=== PATIENT | female | born 1960 | race Caucasian/White ===

== ENCOUNTER 2018-02-13 09:11 | Emergency (ER) | payer BC ==
[2018-02-13 10:06] VITALS: BP 182/110
--- NOTE | 2018-02-13 10:20 | UC ---
Minor Trauma HPI - HPI Summary HPI Summary: Patient presents to the urgent care for evaluation of right-sided head trauma that happened yesterday. Patient states she is wearing into her garage. Patient states he was some moisture in the garage floor she tripped and fell landing on the right side of her face and her left knee. Patient states the mealy she had bruising around her eye as well as swelling. Patient states she applied ice pack all day long. Patient also with some bruising to her left knee. Patient did not lose consciousness. No blood out of her HEENT. No neck or back pain. No chest pain or shortness of breath. No abdominal pain. No nausea vomiting. No paresthesias or muscle weakness. Patient states her father had history of a brain hemorrhage following a fall at her retirement and so she and her mother very concerned she has bleeding. Patient came to reassurance and evaluation of this today patient is not on any anticoagulants. Patient has not taken anything for pain medication had a bleed. Patient does not have any vision changes. Patient does report a dull right-sided frontal headache. Patient asked and did denied any intentional trauma. States nobody injured her that she slipped and fell as described above. Of note, patient's blood pressure was markedly elevated at today's exam. Patient states she has a history of hypertension has taken herself off her medication. Patient states she was concerned it was getting high again so she has appointment this Wednesday to resume medications with her primary. Patient without any chest pain or lightheadedness. Pt's medications reviewed this visit - History of Current Complaint Chief Complaint: UCHeadInjury Stated Complaint: S/P FALL HEAD INJURY (YESTERDAY - NO LOC) Time Seen by Provider: 02/13/18 10:15 Hx Obtained From: Patient ?: No Onset/Duration: Sudden Onset Onset Of Pain: Immediate Severity Initially: Moderate Severity Currently: Moderate Pain Intensity: 6 Pain Scale Used: 0-10 Numeric Mechanism Of Injury: Blunt Trauma Aggravating Factor(s): Nothing Alleviating Factor(s): Ice - Allergies/Home Medications Allergies/Adverse Reactions: Allergies Allergy/AdvReac Type Severity Reaction Status Date / Time No Known Allergies Allergy Verified 02/13/18 09:54 PMH/Surg Hx/FS Hx/Imm Hx Previously Healthy: Yes Cardiovascular History: Hypertension - Surgical History Surgical History: Yes Surgery Procedure, Year, and Place: hysterectromy. rhinoseptroplasty. Rt knee surgery - Family History Known Family History: Positive: Hypertension - Social History Alcohol Use: Occasionally Substance Use Type: None Smoking Status (MU): Never Smoked Tobacco - Immunization History Most Recent Influenza Vaccination: 02/2013 Review of Systems Constitutional: Negative Skin: Bruising Eyes: Negative ENT: Negative Respiratory: Negative Motor: Negative Neurovascular: Negative All Other Systems Reviewed And Are Negative: Yes Physical Exam - Summary Physical Exam Summary: Vital Signs Reviewed: Yes A+Ox3, no distress Eyes: Conjunctiva Clear, NINA. EOM intact and full + Ecchymosis upper orbital area and upper lid. no crepitus. ENT: Hearing grossly normal TM x 2 clear, mmoist, uvula midline, no exudate, no erythema No hemotymp b/l no septal hematoma b/l Neck: Positive: Supple Respiratory: Positive: No respiratory distress, No accessory muscle use + CTA throughout no w/r Cardiovascular: RRR nl s1, s2 no m/r CBT <2 sec abd soft + BS nt/nd no guarding, no distension Musculoskeletal Exam: TAVAREZ x 4 without difficulty Strength Intact, ROM Intact No pain c/t/l/s Full AROM Neurological: Positive: Alert, + sensation throughout + CN 2- 12 intact and full, + heel/peters Psychological: Positive: Normal Response To Family Skin: Positive: no rash, no abraison, pt with ecchymosis right upper orbit and upper lid. Ecchymosis left knee Triage Information Reviewed: Yes Vital Signs: Initial Vital Signs Temp 98.4 F 02/13/18 09:57 Pulse 81 02/13/18 09:57 Resp 14 02/13/18 09:57 BP 182/110 02/13/18 09:57 Pulse Ox 97 02/13/18 09:57 Diagnostics - Radiology No standard instances Radiology Interpretation Completed By: Radiologist - Patient Name: VICENTE CHINCHILLA Medical Record#: [id number] Ordering Physician: Tanisha Monsivais MD Acct.#: [id number] : 1960 Age: 57 Sex: F Location: [facility] Exam Date: 02/13/18 1027 ADM Status: REG ER Order Information: CT BRAIN WO Accession Number: [id number] CPT: 58906 Indication: Fall February 12, 2018 injury to the eye. Clinical concern for potential intracranial hemorrhage. Comparison: No relevant prior exams available on the [facility] for comparison. Technique: Noncontrast CT vertex of skull through foramen magnum. Report: Mild prominence of the cerebral sulci and cerebellar fissures reflecting involutional change. Unremarkable ventricles and basal cisterns. Negative for pang matter white matter obscuration, intra or extra-axial hemorrhage, or mass effect. Negative for calvarial or skull base fracture. Clear visualized paranasal sinuses and mastoid air spaces. Negative for scalp hematoma. IMPRESSION: #. No CT evidence for traumatic brain injury. #. Mild involutional change. <Electronically signed by Lenin Newberry MD in OV> 02/13/181106 Dictated By: Lenin Newberry MD Dictated Date/Time: 02/13/181106 Transcribed Date/Time: 02/13/18 110 Copy to: CC:Paige MENDEZ; Tanisha Monsivais MD Imaging - [facility] - [place] [facility] - [facility] [address] [place] [address] ph ) ph ([phone]) ph ([phone]) This report is only to be considered final once signed by the Provider(s) as displayed in the "<Electronically Signed by >" field (s). Absence of a signature indicates the report is in a draft status and still needs to be finalized. In the event this document was created by someone other than the signing Provider, the individual initiating the document will be listed in the "Entered by:" or "Dictated by:" medina. 1 of 1 Re-Evaluation - Re-Evaluation First Eval Re-Evaluation Time: 11:25 Comment: Reviewed imaging studies with patient. No acute fracture. Recommended ice. Motrin/time. Recommend patient follow up PCP on Wednesday for blood pressure. Patient has appointment already. Work note. Minor Trauma Course/Dx - Course Course Of Treatment: Patient presents to urgent care for evaluation following a fall last night. Patient states she was stopped in a garage landing on her left knee and her right face. Patient with ecchymosis to her left knee. Patient with full range of motion without instability. Patient had a without difficulty. Patient also with ecchymosis to her right eye. Patient states it is more swollen yesterday improved with ice. No analgesia taken. Patient concern for bleeding given a family history of brain please after fall. Patient is on anticoagulation. Patient declined Tylenol here. We'll give ice. We'll check a CT of the brain and orbit. Discussed with patient her blood pressure was markedly elevated. Patient has appointment on Wednesday with her PCP. Patient comfortable in agreement with plan. - Differential Dx/Diagnosis Provider Diagnoses: facial contusion. knee contusion, left Discharge - Sign-Out/Discharge Documenting (check all that apply): Patient Departure All imaging exams completed and their final reports reviewed: Yes - Discharge Plan Condition: Stable Disposition: HOME Patient Education Materials: Contusion in Adults (ED), Facial Contusion (ED), Hypertension (ED) Forms: *Work Release Referrals: Paige Marquis [Primary Care Provider] - Additional Instructions: - Okay to alternate ibuprofen (Advil, Motrin) and Tylenol every 3 hours for pain or fever. Take with food. Do NOT take for more than 4-5 days. - apply ice (wrapped in a towel) 20 minutes at a time 2-3 times a day - Follow-up with your doctor this week as scheduled - contact your doctor or return with questions or concerns - Billing Disposition and Condition Condition: STABLE Disposition: Home
--- NOTE | 2018-02-13 11:10 | RAD ---
Indication: Fall February 12, 2018 injury to the eye. Clinical concern for potential intracranial hemorrhage. Comparison: No relevant prior exams available on the [facility] PACS for comparison. Technique: Noncontrast CT vertex of skull through foramen magnum. Report: Mild prominence of the cerebral sulci and cerebellar fissures reflecting involutional change. Unremarkable ventricles and basal cisterns. Negative for pang matter white matter obscuration, intra or extra-axial hemorrhage, or mass effect. Negative for calvarial or skull base fracture. Clear visualized paranasal sinuses and mastoid air spaces. Negative for scalp hematoma. IMPRESSION: #. No CT evidence for traumatic brain injury. #. Mild involutional change.
--- NOTE | 2018-02-13 11:21 | RAD ---
Indication: Fall with traumatic injury to the RIGHT eye. Facial soft tissue swelling. Comparison: CT brain of the same date. Technique: CT orbits without contrast. Multiplanar reformation. Report: Very mild soft tissue swelling superficial to the RIGHT eye. Negative for post septal RIGHT orbital edema or hematoma. The ocular globes are symmetric. Minimal mucosal thickening at the floors of the maxillary sinuses. Negative for paranasal sinus fluid levels. The orbital and maxillary sinus margins, zygomatic arches, lamina papyracea, base of the maxilla, pterygoid plates, and nasal bones are intact. Unremarkable temporomandibular joints. IMPRESSION: #. Very mild soft tissue swelling superficial to the RIGHT eye. Negative for post septal RIGHT orbital edema or hematoma. #. Negative for facial fracture within the [id number].
== END 2018-02-13 11:38 | disposition home or self-care (01) ==
LOC: UCCORT 09:11
DX: S00.83XA Contusion of other part of head, initial encounter (principal); S80.02XA Contusion of left knee, initial encounter; W01.0XXA Fall on same level from slipping, tripping and stumbling without subsequent striking against object, initial encounter; Y93.01 Activity, walking, marching and hiking; Y92.008 Other place in unspecified non-institutional (private) residence as the place of occurrence of the external cause; I10 Essential (primary) hypertension
CPT/HCPCS: 70450; 70480; 99211; G0463

== ENCOUNTER 2018-10-25 09:12 | Observation (INO) | payer BC ==
[2018-10-25] MEDS ORDERED: Aspirin 81 mg CHEW TAB* 81 MG TAB.CHEW PO ONE (09:31)
[2018-10-25 09:40] LABS: ABS Basophils 0.1 10^3/ul (0-0.2); ABS Eosinophils 0.2 10^3/ul (0-0.6); ABS Lymphocytes 2.4 10^3/ul (1.0-4.8); ABS Monocytes 0.6 10^3/ul (0-0.8); ABS Neutrophils 3.5 10^3/ul (1.5-7.7); Eosinophil % 2.9 %; Hematocrit 43 % (35-47); Hemoglobin 14.7 g/dL (12.0-16.0); Lymphocyte % 35.3 %; Mean Corpuscular HGB Conc 34 g/dL (31-36); Mean Corpuscular Hemoglobin 33 pg (27-31); Mean Corpuscular Volume 97 fL (80-97); Mean Platelet Volume 7.3 fL (7.4-10.4); Platelet Count 254 10^3/uL (150-450); Red Blood Count 4.44 10^6 /uL (3.70-4.87); Red Cell Distribution Width 13 % (10-15); White Blood Count 6.8 10^3/uL (3.5-10.8)
--- NOTE | 2018-10-25 09:41 | ED ---
HPI Chest Pain - HPI Summary HPI Summary: The patient is a 57 year old F brought in by EMS to [facility] accompanied by her with a chief complaint of mid sternal CP that radiates to her back and HTN. Pt called her while at work and stated that she had high blood pressure with chest pain. She states that she was unable to get comfortable on . She had tingling while falling asleep but felt fine when she was standing and had no other issues on 10/24/17. Last night she had large amounts of diaphoresis during the night and had pains this morning when she woke up at 0600. She states that the pain hasnt increased or decreased since onset and that it is a 6/10. She also reports feeling as if shes bloated and has had gas pains with diarrhea and abdominal pains. She also reports a headache. Pt denies any fever, chills, erythema of eyes, sore throat, SOB, N/V, dysuria, hematuria, myalgia, edema, rash, or dizziness. 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 She reports that she has not been taking her BP medications. She denies any heart complications and her reports that she doesnt smoke. She is on medications for HTN. She has had no issues in the last couple of weeks. Her mother has a Hx of blockages in 3 arteries that extend into her lower extremity. Her mother also has a Hx of aneurisms, cardiac complications, and DM. Her father of a heart attack. 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 - Onset/Duration: Started Hours Ago - 06, Still Present Time of Onset: 06:00 Timing: Constant Initial Severity: Moderate Current Severity: Moderate Pain Intensity: 6 Pain Scale Used: 0-10 Numeric Chest Pain Location: Mid Sternal Chest Pain Radiates: Yes Chest Pain Radiates To:: Back Character: Tightness Aggravating Factor(s): Nothing Alleviating Factor(s): Nothing Associated Signs and Symptoms: Positive: Negative - Pt denies any fever, chills , erythema of eyes, sore throat, SOB, N/V, dysuria, hematuria, myalgia, edema, rash, or dizziness, Chest Pain, Headaches, Tingling - when falling asleep, Diaphoresis, Back Pain, Abdominal Pain, Other: - POSITIVE: diarrhea - Allergy/Home Medications Allergies/Adverse Reactions: Allergies Allergy/AdvReac Type Severity Reaction Status Date / Time No Known Allergies Allergy Verified 10/25/18 09:16 PMH/Surg Hx/FS Hx/Imm Hx Previously Healthy: No Endocrine/Hematology History: Denies: Hx Diabetes, Hx Thyroid Disease Cardiovascular History: Reports: Hx Hypertension - on medication, Other Cardiovascular Problems/Disorders - CHOLESTEROL Denies: Hx Congestive Heart Failure, Hx Deep Vein Thrombosis, Hx Myocardial Infarction, Hx Pacemaker/ICD Respiratory History: Denies: Hx Asthma, Hx Chronic Obstructive Pulmonary Disease (COPD), Hx Lung Cancer, Hx Pneumonia, Hx Pulmonary Embolism, Other Respiratory Problems/ Disorders GI History: Denies: Hx Gall Bladder Disease, Hx Gastrointestinal Bleed, Hx Ulcer, Hx Urosepsis History: Denies: Hx Kidney Stones, Hx Renal Disease Musculoskeletal History: Denies: Hx Scoliosis Sensory History: Denies: Hx Hearing Aid Neurological History: Reports: Hx Headaches Denies: Hx Dementia, Hx Migraine, Hx Seizures, Hx Transient Ischemic Attacks (TIA) Psychiatric History: Denies: Hx Anxiety, Hx Depression, Hx Panic Disorder, Hx Schizophrenia, Hx Bipolar Disorder - Cancer History Cancer Type, Location and Year: skin CA basal cell Hx Chemotherapy: No Hx Radiation Therapy: No - Surgical History Surgery Procedure, Year, and Place: hysterectromy. rhinoseptroplasty. Rt knee surgery Infectious Disease History: No Infectious Disease History: Denies: Hx Clostridium Difficile, Hx Hepatitis, Hx Human Immunodeficiency Virus (HIV), Hx of Known/Suspected MRSA, Hx Shingles, Hx Tuberculosis, Traveled Outside the [place] in Last 30 Days - Family History Known Family History: Positive: Hypertension - Social History Alcohol Use: Occasionally Substance Use Type: Reports: None Hx Tobacco Use: No Smoking Status (MU): Never Smoked Tobacco Review of Systems Positive: Skin Diaphoresis. Negative: Fever, Chills Negative: Erythema Negative: Sore Throat Positive: Chest Pain Negative: Shortness Of Breath, Cough Positive: Abdominal Pain, Diarrhea. Negative: Vomiting, Nausea Negative: dysuria, hematuria Negative: Myalgia, Edema Negative: Rash Neurological: Other - NEGATIVE: Dizziness POSITIVE: tingling when falling asleep Positive: Headache All Other Systems Reviewed And Are Negative: Yes Physical Exam - Summary Physical Exam Summary: Constitutional: Well-developed, Well-nourished, Alert. (-) Distressed Skin: Warm, Dry HENT: Normocephalic; Atraumatic Eyes: Conjunctiva normal Neck: Musculoskeletal ROM normal neck. (-) JVD, (-) Stridor, (-) Tracheal deviation Cardio: Rhythm regular, rate normal, Heart sounds normal; Intact distal pulses; The pedal pulses are 2+ and symmetric. Radial pulses are 2+ and symmetric. (-) Murmur Pulmonary/Chest wall: Effort normal. (-) Respiratory distress, (-) Wheezes, (-) Rales Abd: Soft, (-) tenderness, (-) Distension, (-) Guarding, (-) Rebound Musculoskeletal: (-) Edema Lymph: (-) Cervical adenopathy Neuro: Alert, Oriented x3 Psych: Mood and affect Normal Triage Information Reviewed: Yes Vital Signs On Initial Exam: Initial Vitals Temp Pulse Resp BP Pulse Ox 97.9 F 71 20 256/129 100 10/25/18 09:13 10/25/18 09:13 10/25/18 09:13 10/25/18 09:13 10/25/18 09:13 Vital Signs Reviewed: Yes Diagnostics - Vital Signs Vital Signs Temp Pulse Resp BP Pulse Ox 10/25/18 09:13 97.9 F 71 20 256/129 100 - Laboratory Result Diagrams: 10/25/18 09:33 10/25/18 09:33 Lab Statement: Any lab studies that have been ordered have been reviewed, and results considered in the medical decision making process. - Radiology CXR Radiology Interpretation Completed By: Radiologist Summary of Radiographic Findings: NO ACTIVE CARDIOPULMONARY DISEASE. ED Physician has reviewed this report. - CT Brain CT Interpretation Completed By: Radiologist Summary of CT Findings: NO ACUTE INTRACRANIAL PATHOLOGY. ED Physician has reviewed this report. Chest A/P PO CT Interpretation Completed By: Radiologist Summary of CT Findings: 1. NO INTIMAL FLAP TO SUGGEST AORTIC DISSECTION. 2. FATTY INFILTRATION OF THE LIVER. 3. SCATTERED DIVERTICULA OF THE DISTAL COLON. ED Physician has reviewed this report - EKG 0924 Cardiac Rate: NL - 76 BPM EKG Rhythm: Sinus Rhythm ST Segment: Normal Summary of EKG Findings: EKG was read at 0924 on 10/25/18 and shows a normal sinus rhythm of 76 BPM, no stemi, and a probable LVH. Interpreted by Dr. Roberto MD. 0926 Cardiac Rate: NL - 74 EKG Rhythm: Sinus Rhythm Summary of EKG Findings: EKG read at 0926 on 10/25/18 and shows a normal sinus rhythm with a rate of 74 BPM, LVH, and no STEMI. Re-Evaluation - Re-Evaluation First Eval Re-Evaluation Time: 10:20 Change: Improved Comment: Pt is down to a 1/10 for chest pressure. Still c/o a headache, a head CT will be done. Second Eval Re-Evaluation Time: 10:30 Change: Unchanged Comment: Pt requested to wait on her Brain CT until her creatinine levels were returned. Third Eval Re-Evaluation Time: 11:16 Comment: Pt was infromed of her Creatinine, her chest pressure is resolved but she still presents with a headache. She now reports of blurry vision in her R eye. Fourth Eval Re-Evaluation Time: 13:26 Change: Improved Comment: The pt just stated that she had a gradual onset of a headache for the past 2-3 days after falling down and hitting the back of her head. The hospitalist will be consulted pending an admission to [facility]. A subarachnoid hemorrhage is not suspected at this time. Chest Pain Course/Dx - Course Course Of Treatment: he patient is a 57 year old F brought in by EMS to [facility] accompanied by her with a chief complaint of mid sternal CP that radiates to her back and HTN. Pt called her while at work and stated that she had high blood pressure with chest pain. She states that she was unable to get comfortable on 10/23/18. She had tingling while falling asleep but felt fine when she was standing and had no other issues on 10/24/17. Last night she had large amounts of diaphoresis during the night and had pains this morning when she woke up at 0600. Upon her PE the pt had no abnormal findings. She had an EKG at 0926 on 10/25/18 and shows a normal sinus rhythm with a rate of 74 BPM, LVH, and no STEMI. The pt received a CXR which showed NO ACTIVE CARDIOPULMONARY DISEASE and a Brain CT which showed NO ACUTE INTRACRANIAL PATHOLOGY. Due to her lack of improvements with her abdominal region, she received a CT Chest A/P PO which found: 1. NO INTIMAL FLAP TO SUGGEST AORTIC DISSECTION. 2. FATTY INFILTRATION OF THE LIVER. 3. SCATTERED DIVERTICULA OF THE DISTAL COLON. She received the following medications during her ED course: ASA 324 mg PO, Nitro .4mg SL, nitro 1 inch topical. The pt stated at 1328 that she had a gradual onset of a headache for the past 2-3 days after falling down and hitting the back of her head. The hospitalist will be consulted pending an admission to [facility]. A subarachnoid hemorrhage is not suspected at this time. Dr. Pruitt is aware of pt's condition and accepts the pt as an admit to [facility] with the Dx of hypertensive emergency. - Diagnoses Provider Diagnoses: Hypertensive emergency - Provider Notifications Discussed Care Of Patient With: Debbie Pruitt Time Discussed With Above Provider: 14:15 Instructed by Provider To: Admit As Inpatient - Critical Care Time Critical Care Time: 30-74 min - 60 minutes Discharge - Sign-Out/Discharge Documenting (check all that apply): Patient Departure - admitted Patient Received Moderate/Deep Sedation with Procedure: No - Discharge Plan Condition: Stable Disposition: ADMITTED TO [facility] Referrals: Paige Marquis [Primary Care Provider] - - Attestation Statements Document Initiated by Scribe: Yes Documenting Scribe: Sander Cote Provider For Whom Scribe is Documenting (Include Credential): Chintan Mejia MD Scribe Attestation: Sander Loredo, scribed for Chintan Mejia MD on 10/25/18 at 1412. Status of Scribe Document: Ready
[2018-10-25] MEDS: Nitroglycerin TAB 0.4 MG* 0.4 MG TAB SL ONE ×3 (09:43→10:12)
[2018-10-25 09:45] LABS: INR 0.94 (0.82-1.09)
[2018-10-25] MEDS ORDERED: Nitro 2% OINT* (Nitroglycerin) 1 INCH/PAK PAK TOPICAL ONE (09:54)
[2018-10-25 09:57] LABS: Albumin 4.4 g/dL (3.2-5.2); Albumin/Globulin Ratio 1.5 (1-3); EGFR African American 65.1 (>60); EGFR Non-African American 53.8 (>60); Potassium 3.8 mmol/L (3.5-5.0); Total Bilirubin 0.5 mg/dL (0.2-1.0); Total Protein 7.4 g/dL (6.4-8.9)
[2018-10-25] MEDS ORDERED: Iodixanol* (CONTRAST) 320 MG/ML 100 ML SDV IV ONE (10:29)
[2018-10-25] MEDS ORDERED: NS 0.9% 500 ML* 500 ML IV ONE (10:48)
[2018-10-25] MEDS ORDERED: hydrALAZINE IV* 20 MG/ML VIAL IV SLOW PU ONE (13:20)
[2018-10-25] MEDS ORDERED: hydrALAZINE IV* 20 MG/ML VIAL IV SLOW PU PRN (15:12)
[2018-10-25] MEDS ORDERED: Acetaminophen TAB* 325 MG PO ONE (15:18)
[2018-10-25] MEDS: amLODIPine TAB* 5 MG PO SCH (15:22)
--- NOTE | 2018-10-25 16:28 | HP ---
CC: Paige Dickerson NP* HISTORY AND PHYSICAL: DATE OF ADMISSION: 10/25/18 PRIMARY CARE PROVIDER: Paige Dickerson NP CHIEF COMPLAINT: Headache and chest pain. HISTORY OF PRESENT ILLNESS: Ms. Freeman is a 57-year-old female who has a history of hypertension and hyperlipidemia, who has been off her medication for at least the last 3 months. She states that she went off it after her medication was recalled. She did not follow up with her primary. She states that over the last 2 weeks she has been having night sweats. She describes these as completely drenching. She has not had any other signs of infection, however. She also notes approximately 2 weeks ago she was getting out of the hot tub and she was wearing her flip flops and it was wet out and she slipped striking the back of her head. She did have headache initially following that; however, that resolved. Over the last 2 nights, however, the patient has been having very severe posterior headaches. She states that the pain was so bad it hurt to put her head on the pillow. She also notes that she has had a significant amount of belching/indigestion over the last couple days. This morning, she woke up with a band-like discomfort around her chest and back. It did get better; however, is now coming back. Ultimately, because of the chest and back discomfort, she presented to the emergency room for evaluation. The patient was found to be markedly hypertensive. 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 At the school, her blood pressure was noted to be 250/110. She thought perhaps her symptoms may have been related to hypertension as she has been off her medication; however, she did not want to be evaluated for it. PAST MEDICAL HISTORY: 1. Hypertension. 2. Hyperlipidemia. 3. B12 deficiency. 4. Osteoarthritis. 5. Questionable Raynaud's. PAST SURGICAL HISTORY: 1. Hysterectomy. 2. Right knee arthroscopic surgery. 3. Rhinoseptoplasty. 4. The patient had her uvula removed as a child. MEDICATIONS: None. ALLERGIES: No known drug allergies. FAMILY HISTORY: Mom is living. She is 74 and has type 2 diabetes, peripheral arterial disease, and hypertension. Dad at the age of 74. He had Alzheimer's, CVA, and bladder cancer. SOCIAL HISTORY: The patient is a nonsmoker. She drinks 1 to 2 alcoholic beverages nightly. 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 She is . She has 2 children. She indicates that her would be her surrogate decision maker. REVIEW OF SYSTEMS: A complete 11-system review of systems is obtained. Pertinent positives and negatives are as HPI. In addition, the patient does state that she has noted ankle swelling at the end of the day. She has had intermittent cough for which she saw a doll wig hackler out of [facility]. She also notes that she will occasionally have bright red blood on the toilet paper after she wipes. She thinks she may have an anal fissure. PHYSICAL EXAMINATION GENERAL: The patient is a well-developed, middle-aged female seen sitting up in the bed, in no acute distress. VITAL SIGNS: Blood pressure 162/86, pulse 54, respirations 24, temp 97.9, O2 sat 99% on room air. HEENT: Pupils are equal and round. Extraocular muscles are intact. Oropharynx is clear. Oral mucosa is moist. NECK: There is no submandibular, cervical, or supraclavicular adenopathy. Thyroid is not enlarged. No thyroid nodules noted. PULMONARY: Lungs are clear to auscultation bilaterally. CARDIAC: Normal S1, S2. Regular rate and rhythm. I do not appreciate any murmurs. ABDOMEN: Bowel sounds are present. Abdomen is soft, nontender, nondistended. MUSCULOSKELETAL: There is no cyanosis or clubbing of the digits. There is full active range of motion of all 4 extremities. NEURO: Cranial nerves II through XII are grossly intact. Sensation is intact to light touch throughout. Strength is 5/5 and symmetric to both upper and lower extremities bilaterally. PSYCH: The patient is alert. She is oriented x3. Affect appears appropriate. SKIN: Warm and dry. There are no rashes. DIAGNOSTIC STUDIES/LAB DATA: WBC 6.4, hemoglobin 14.7, hematocrit 43, platelets 254. INR 0.94. Sodium 138, potassium 3.8, chloride 103, CO2 of 26, BUN 18, creatinine 1.06, glucose 117, calcium 10.0. Bilirubin 0.5, AST 39, ALT 41, alk phos 81. Troponin 0 up to 0.01. Albumin 4.4. EKG reveals normal sinus rhythm with inverted T-wave in lead III, which dates back to 2009. Otherwise, there are no acute ST-T wave abnormalities. ASSESSMENT AND PLAN: Ms. Freeman is a 57-year-old female with a history of hypertension and hyperlipidemia, who presented to the emergency room with complaints of headache and chest pain and was found to have accelerated hypertension with systolics in the mid 200 and diastolics greater than 100. 1. Accelerated hypertension. The patient has been off her medications for what she believes at least the last 3 months. We will initiate amlodipine 10 mg p.o. now followed by removal of the nitroglycerin paste as I do believe it is likely contributing to her headache that she currently has. Additionally, the patient will be started on hydrochlorothiazide 12.5 mg p.o. daily. The goal at this point should be to get her blood pressures to the 150 to 160 range. Further adjustments in her regimen can be made as an outpatient by her PCP. 2. Chest/back pain. This likely is related to her hypertension; however, given the history of hypertension and hypercholesterolemia and being middle-aged , I do feel that she warrants an exercise stress test. She will have plain exercise stress test tomorrow. Troponin, however, will be checked one more time as there has been an increase from 0 to 0.01 with her first 2 troponins. 3. Hyperlipidemia. We will start Lipitor 20 mg p.o. daily. She cannot remember her prior dose of Crestor. 4. B12 deficiency. The patient gets IM B12 injections monthly. 5. DVT prophylaxis: According to the Adult Thrombosis Prophylaxis Risk Factor Assessment Guide, the patient has a total risk factor score of 1, making her low risk. Ambulation will be utilized as DVT prophylaxis. 6. Code status is full. TIME SPENT: Sixty-five minutes was spent admitting this patient. [id number]/[facility] #: [id number] RAH
[2018-10-25] MEDS: Atorvastatin* 20 MG TAB PO SCH (20:16)
[2018-10-26] MEDS: Acetaminophen TAB* 325 MG PO PRN ×2 (06:05→20:17)
[2018-10-26] MEDS: amLODIPine TAB* 5 MG PO SCH (07:50)
[2018-10-26] MEDS ORDERED: Hydrochlorothiazide TAB* 25 MG PO SCH (09:00)
[2018-10-26] MEDS ORDERED: Regadenoson* 0.4 MG/5 ML SYRINGE ONE (10:37)
[2018-10-26] MEDS ORDERED: Aminophylline IV* 25 MG/ML 10 ML VIAL ONE (10:37)
[2018-10-26] MEDS ORDERED: Hydrochlorothiazide TAB* 25 MG PO ONE (15:39)
--- NOTE | 2018-10-26 15:42 | PN ---
Subjective Date of Service: 10/26/18 Interval History: VS: BP low in a.m., trending up Labs: slight elevated Cr; troponins negative x3 Pt is eager for d/c. She states she had part of her NM stress test today, and she must finish it tomorrow a.m. She continues to have posterior martinez that is sometimes TTP and intermittent. She denies CP. She denies vision changes, but notes "floaters" and blurred vision the day prior. Pt has had no rx for HTN in approximately 3 months. She believes she was previously on losartan and HCTZ 25 or 50. Objective Active Medications: Acetaminophen (Tylenol Tab*) 650 mg PO Q4H PRN Amlodipine Besylate (Norvasc Tab*) 10 mg PO DAILY IRISH Atorvastatin Calcium (Lipitor*) 20 mg PO 2100 IRISH Hydralazine HCl (Apresoline Iv*) 10 mg IV SLOW PU Q6H PRN Hydrochlorothiazide (Hydrodiuril Tab*) 12.5 mg PO DAILY IRISH Vital Signs: Temp Pulse Resp BP Pulse Ox 97.9 F 72 18 168/72 98 10/26/18 13:37 10/26/18 13:37 10/26/18 13:37 10/26/18 13:37 10/26/18 13:37 Oxygen Devices in Use Now: None Result Diagrams: 10/25/18 09:33 10/25/18 09:33 Assess/Plan/Problems-Billing Assessment: 57 yof PMHx HTN, HLD, B12 deficiency presents with martinez, indigestion and was noted to have HTN. - Patient Problems (1) Hypertension Comment: -BP lowered, then increasing throughout day -Currently on Amlodipine 10, HCTZ 12.5 -Will add losartan 50 and double HCTZ -Continue to monitor (2) Chest pain Comment: -Pt reports indigestion, epigastric pain, but denies CP -Troponin negative x3 -EKG portion of NM stress test shows no evidence of myocardial ischemia by EKG criteria -Awaiting NM portion of stress test (3) Hyperlipidemia Comment: -Continue atorvastatin (4) B12 deficiency Comment: -IM B12 injections qmonth (5) DVT prophylaxis Comment: -Ambulation (6) Full code status Status and Disposition: Observation. Discharge in a.m. after part II of NM stress test.
[2018-10-26] MEDS: Losartan TAB* 25 MG PO SCH (15:57)
[2018-10-26] MEDS ORDERED: Lisinopril TAB* 10 MG PO SCH (16:00)
[2018-10-26] MEDS: Atorvastatin* 20 MG TAB PO SCH (20:15)
[2018-10-27] MEDS: amLODIPine TAB* 5 MG PO SCH (07:23)
[2018-10-27] MEDS: Losartan TAB* 25 MG PO SCH (07:23)
[2018-10-27 07:46] VITALS: BP 122/74
[2018-10-27] MEDS ORDERED: Hydrochlorothiazide TAB* 25 MG PO SCH (09:00)
--- NOTE | 2018-10-27 12:28 | CONSULT ---
Subjective Date of Service: 10/27/18 Interval History: Admission Date: 10/25/18 consult date 10/27/2018 service: Hospitalist PCP Paige Dickerson NP CC: Chest pain, headache Reason for consult: Chest pain, abnormal stress test HISTORY OF PRESENT ILLNESS: Rylie Freeman is a 57-year-old woman with a history as below who self discontinued her medications 3 months ago. She was admitted with night sweats, headache and band like chest discomfort around chest and back. She was found to be severely hypertensive at 250/110 mmHg. Her chest discomfort has now resolved with BP control. A mild headache persists. She ruled out for ACS. She was unfortunately given lexiscan instead of a treadmill for her stress test. There was no noted inducible discomfort or ischemic ekg changes. The rest and stress perfusion was normal. She did have elevated TID index, the most concerning cause would be multivessel CAD which is less likely but possible and cannot be excluded without incorporation of a treadmill study. I did recommend she have an exercise stress echocardiogram later today to evaluate for this. Patient declined. 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 PAST MEDICAL HISTORY: 1. Hypertension. 2. Hyperlipidemia. 3. B12 deficiency. 4. Osteoarthritis. 5. Questionable Raynaud's. 6. Patient to be evaluated for congenital PAD that her mother has by Dr. Amanda Ratliff at some point in the future. PAST SURGICAL HISTORY: 1. Hysterectomy. 2. Right knee arthroscopic surgery. 3. Rhinoseptoplasty. 4. The patient had her uvula removed as a child. MEDICATIONS: None. ALLERGIES: lipitor, myaglias FAMILY HISTORY: Mom is living. She is 74 and has type 2 diabetes, peripheral arterial disease that is congenital and involves mesenteric arteries, and hypertension. Father at the age of 74. He had Alzheimer's, CVA, and bladder cancer. SOCIAL HISTORY: The patient is a nonsmoker. She drinks 1 to 2 alcoholic beverages nightly. 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 She is . She has 2 children. She indicates that her would be her surrogate decision maker. Medications Active Medications: Acetaminophen (Tylenol Tab*) 650 mg PO Q4H PRN PRN Reason: PAIN Last Admin: 10/26/18 20:17 Dose: 650 mg Amlodipine Besylate (Norvasc Tab*) 10 mg PO DAILY [facility] Last Admin: 10/27/18 07:23 Dose: 10 mg Atorvastatin Calcium (Lipitor*) 20 mg PO 2100 [facility] Last Admin: 10/26/18 20:15 Dose: 20 mg Hydralazine HCl (Apresoline Iv*) 10 mg IV SLOW PU Q6H PRN PRN Reason: SBP>170 Last Admin: 10/26/18 00:00 Dose: 10 mg Hydrochlorothiazide (Hydrodiuril Tab*) 25 mg PO DAILY [facility] Last Admin: 10/27/18 07:23 Dose: 25 mg Losartan Potassium (Cozaar Tab*) 50 mg PO DAILY [facility] Last Admin: 10/27/18 07:23 Dose: 50 mg Home Medications: \ None, currently, had been on below and also has crestor at home Aspirin 81 mg CHEW TAB* 81 mg PO DAILY #30 tab.chew 10/27/18 [Rx] Hydrochlorothiazide TAB* [Hydrodiuril TAB*] 25 mg PO DAILY #30 tab 10/27/18 [Rx] Losartan TAB* [Cozaar TAB*] 50 mg PO DAILY #30 tab 10/27/18 [Rx] amLODIPine TAB* [Norvasc 5 mg TAB*] 10 mg PO DAILY #30 tab 10/27/18 [Rx] Review of Systems - Measurements Intake and Output: Intake and Output Last 24 Hours 10/25/18 10/26/18 10/27/18 10/28/18 06:59 06:59 06:59 06:59 Intake Total 625 690 Balance 625 690 Weight 120 lb Intake: IV Fluids 500 Oral 125 690 Other: # Voids 0 1 - Review of Systems Constitutional Symptoms: Positive: Night Sweats Negative: Weight Gain, Weight Loss, Weakness, Fever Dermatology: Negative: Rash, Skin Lesions HEENT: Negative: Change in Hearing, Vertigo Eyes: Negative: Change in Vision, Double Vision Thyroid: Negative: Cold Intolerance, Heat Intolerance, Palpitations, Weight Loss, Weight Gain Pulmonary: Positive: Cough Negative: Sputum, Hemoptysis, Wheezing, Respiratory Distress, Shortness of Breath, COPD Cardiology: Positive: Chest Pain Negative: Shortness of Breath, Palpitations, Swelling of Ankles, Peripheral Vascular Dis, Edema, Faintness, Syncope, Claudication, Paroxysmal Nocturnal Dyspnea, Orthopnea Gastroenterology: Negative: Abdominal Pain, Nausea, Vomiting, Anorexia, Melena Genital - Urinary: Negative: Dysuria, Hematuria Musculoskeletal: Negative: Joint Pain, Joint Stiffness Endocrinology: Negative: Obesity, Diabetes, Polydipsia, Polyuria Hematologic/Lymphatic: Negative: Hx Leukemia, Hx Lymphoma, Use of Anticoagulant, Use of Antiplatelet Drugs Neurology: Positive: Headaches Negative: Diplopia, Dizziness, Change in Balancing, Change in Coordination, Change in Memory, Change in Speech, Change in Walking, Numbness\Paresthesiae, Hx of Stroke\TIA, Hx Seizures Psychiatry: Negative: Unusual Anxiety, Suicidal Ideation Allergic/Immunologic: Negative: Hx HIV, Immunocompromise Review of Systems Statement: All other review of systems negative, unless stated above. Objective Vital Signs: Temp Pulse Resp BP Pulse Ox 97.6 F 50 18 122/74 98 10/27/18 07:45 10/27/18 07:45 10/27/18 07:45 10/27/18 07:45 10/27/18 07:45 Oxygen Devices in Use Now: None Appearance: nad, pleasant Ears/Nose/Mouth/Throat: Clear Oropharnyx Neck: NL Appearance and Movements; NL JVP, Trachea Midline Respiratory: Symmetrical Chest Expansion and Respiratory Effort, Clear to Auscultation Cardiovascular: NL Sounds; No Murmurs; No JVD, RRR, No Edema Abdominal: NL Sounds; No Tenderness; No Distention Extremities: No Edema Skin: No Rash or Ulcers Neurological: Alert and Oriented x 3 Laboratory Results: 10/25/18 09:33 10/25/18 09:33 INR (Anticoag Therapy) 0.94 (0.82-1.09) 10/25/18 09:33 Total Bilirubin 0.50 mg/dL (0.2-1.0) 10/25/18 09:33 AST 39 U/L (13-39) 10/25/18 09:33 ALT 41 U/L (7-52) 10/25/18 09:33 Alkaline Phosphatase 81 U/L (34-104) 10/25/18 09:33 Total Protein 7.4 g/dL (6.4-8.9) 10/25/18 09:33 Albumin 4.4 g/dL (3.2-5.2) 10/25/18 09:33 Globulin 3.0 g/dL (2-4) 10/25/18 09:33 Albumin/Globulin Ratio 1.5 (1-3) 10/25/18 09:33 10/25/18 10/25/18 10/25/18 09:33 13:10 15:54 Troponin I 0.00 0.01 0.01 Diagnostic Imaging: Exam Date: 10/25/18 TECHNIQUE: Multiple contiguous axial CT scans were obtained of the chest, abdomen, and pelvis after the administration of intravenous contrast. Coronal and sagittal multiplanar reformations are submitted for review.. Oral contrast was not administered. HEART AND PERICARDIUM: The heart is unremarkable. AORTA AND PULMONARY VASCULATURE: The aorta and pulmonary vasculature are normal. There is no intimal flap to suggest dissection. 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 LUNG PARENCHYMA: The lungs are clear. PLEURA: No pleural abnormalities are noted. ADRENALS: Normal bilaterally. KIDNEYS: The kidneys are normal in shape, size, contour, and axis. There is no hydronephrosis or nephrolithiasis. IMPRESSION: 1. NO INTIMAL FLAP TO SUGGEST AORTIC DISSECTION. 2. FATTY INFILTRATION OF THE LIVER. 3. SCATTERED DIVERTICULA OF THE DISTAL COLON. Exam Date: 10/26/18 1024 NUCLEAR CARDIAC STRESS TEST IMPRESSION: 1. NO FIXED OR REVERSIBLE PERFUSION DEFECTS. 2. THERE IS ELEVATED T.I.D. RATIO WHICH CAN BE SEEN WITH THREE-VESSEL DISEASE, THOUGH THIS MAY BE ARTIFACTUAL. EKG Data: ekg on admission shows NSR, LVH without repolarization abnormalities Assessment/Plan Agree with current BP regimen, BP now controlled and patient is asymptomatic Change lipitor to crestor as patient has pills for this at home Start aspirin 81 mg po daily (ordered) Needs follow up lipid panel and BMP through PCP's office. Will arrange for outpatient exercise stress echocardiogram to further evaluate post-exercise LV size and function post-stress (ordered) Thank you for allowing me to participate in the cardiovascular care of this patient. Please do not hesitate to contact me with questions or concerns.
[2018-10-27] MEDS ORDERED: Aspirin EC TAB* 81 MG TAB.EC PO SCH (13:00)
--- NOTE | 2018-10-27 14:01 | DS ---
CC: Paige Dickerson NP; Ag Baca DO * DISCHARGE SUMMARY: DATE OF ADMISSION: 10/25/18 DATE OF DISCHARGE: 10/27/18 PRIMARY CARE PROVIDER: Paige Dickerson NP. MANAGER FLOOR: Ag Baca DO. ATTENDING PHYSICIAN: Amie Aponte MD * (dictated by ANIKA Foster). PRIMARY DIAGNOSES: 1. Chest pain, rule out acute coronary syndrome. 2. Headache. 3. Hypertension. SECONDARY DIAGNOSES: 1. Hypertension. 2. Hyperlipidemia. 3. B12 deficiency. 4. Osteoarthritis. 5. Questionable Raynaud's. STUDIES WHILE IN THE HOSPITAL: Chest x-ray 10/25/18, impression: No active cardiopulmonary disease. Chest, abdomen, pelvis CTA 10/25/18, impression: No intimal flap to suggest aortic dissection. Fatty infiltration of the liver. Scattered diverticula of the distal colon. Brain CT 10/25/18, impression: No acute intracranial pathology. Nuclear medicine stress test: EKG portion 10/26/18 shows no evidence of myocardial ischemia by EKG criteria. Nuclear portion 10/27/18, impression: No fixed or reversible perfusion defects. There is elevated T.I.D. ratio which can be seen with 3-vessel disease, though this may be artifactual. Assessment: Low-risk. DISCHARGE MEDICATIONS: Home medications: 1. Cyanocobalamin injection 1000 mcg IM monthly. 2. Crestor, unknown dose. New home medications: 1. Amlodipine 10 mg p.o. daily. 2. Losartan 50 mg p.o. daily. 3. Hydrochlorothiazide 25 mg p.o. daily. 4. Aspirin 81 mg p.o. daily. HISTORY OF PRESENT ILLNESS/HOSPITAL COURSE: Ms. Freeman is a 57-year-old female with a past medical history of hypertension, hyperlipidemia, who has been off her medication for approximately 3 months due to recall and lost to followup with primary care provider. She came to the ER due to 2 weeks of night sweats, severe posterior headaches, indigestion. She also notes that on the morning of 10/25/18, she woke up with a band-like discomfort around the chest and back, which was intermittent. In the ER, she was found to be hypertensive with a systolic blood pressure of 250. She was admitted due to hypertension, chest pain, and headache. Due to the patient's chest pain and risk factors of hyperlipidemia and hypertension, she underwent a stress test. Elevated blood pressure prevented exercise stress testing, so nuclear stress testing was performed. The patient' s blood pressure was slowly brought down throughout her stay and at discharge, she is noted to be on amlodipine, losartan, and hydrochlorothiazide with systolic blood pressure in the 120s. Again, she was able to perform nuclear medicine stress test. The EKG portion revealed no evidence of myocardial ischemia, nuclear portion revealed low-risk, no fixed or reversible perfusion defect. There was noted to be an elevated T.I.D. ratio. Cardiology was consulted regarding this and recommended a stress echo. The patient, being eager to go home, refused stress echo and requests this workup to continue outpatient. Dr. Baca is agreeable and we will have his office schedule the test and to follow up with the patient. Regarding the patient's headache, it has progressively decreased. Initially, she was tender to palpation and now, she has a slight posterior headache. She also noted she had vision changes described as blurred or containing floaters. This had also subsided. It is noted that her head CT was within normal limits. On the day of discharge, the patient denies chest pain, shortness of breath, fevers, chills, cough. She denies blurred vision. She does continue to have a slight posterior headache. She denies abdominal pain, nausea, vomiting, diarrhea, pain in the extremities. She denies dizziness, lightheadedness, weakness, or unsteadiness with ambulation. Ms. Freeman is stable for discharge to home. Vital signs are temperature 97.6 oral, heart rate 50, respiratory rate 18, oxygen saturation 98 % on room air, blood pressure 122/74. PHYSICAL EXAM: General: Ms. Freeman is a well-developed, well-nourished, slightly overweight middle-aged woman, who is sitting at the edge of her bed. She is fully dressed. She is well kempt. She is in no acute distress and is cooperative and appropriate. HEENT: Visual medina grossly intact. Pupils equally round and reactive to light. Extraocular movements intact. Hearing grossly intact. Oral mucous membranes are moist without lesions. The pharynx is clear. Head is normocephalic, atraumatic, and nontender to palpation. Neck with full range of motion, nontender to palpation. Trachea midline. There is no JVD. Cardiovascular: Regular rate and rhythm with S1, S2 present without murmurs, rubs, clicks, or gallops. Again, no JVD. Pulmonary: Chest expansion within normal limits. Lungs are clear to auscultation bilaterally. There are no rhonchi, wheezes, or rubs. Abdomen: Bowel sounds noted in all quadrants. The abdomen is soft. There is no tenderness to palpation. Extremities: Skin is warm bilaterally without clubbing, cyanosis, or edema. Neuro: The patient is awake. She is alert and oriented x3. She is able to move all of her extremities. She has a steady gait without impairment. DISCHARGE PLAN: Ms. Freeman will be discharged to home. CONDITION: Good. ACTIVITY: As tolerated. DIET: Heart-healthy. MEDICATIONS: 1. Start aspirin 81 mg daily. 2. Continue amlodipine 10 mg, losartan 50 mg, hydrochlorothiazide 25 mg p.o. daily. 3. Continue home Crestor and do not waste picker atorvastatin from pharmacy. EDUCATION: 1. Lab draw BMP in 2 weeks with results to primary care provider, prescription given. 2. Monitor and log blood pressure at least daily, bring log to primary care provider. 3. Stress echo to be scheduled by Dr. Baca's office; office will call the patient with a time. 4. Follow up with primary care provider in 4 to 7 days to discuss new medications, blood pressure log, and BMP results. 5. Follow up with Dr. Baca, Cardiology, in 2 to 3 weeks. 6. Return to the ER or nearest hospital if you experience any worsening of symptoms, worsening of headache, chest discomfort or pain, shortness of breath, dizziness, lightheadedness, loss of consciousness, high fever, chills, night sweats, or any other worrisome signs or symptoms. This is a summarized report of a complex medical history and hospital stay. For further details, please see the entire medical record. TIME SPENT: Approximately 35 minutes was spent on this discharge, greater than half that time was spent [id number] with the patient discussing discharge plans and instructions. ANIKA ACEVEDO [id number]/[facility] #: [id number] RAH
== END 2018-10-27 12:48 | disposition home or self-care (01) ==
LOC: ED 09:12 → MEDTELE 15:12
PROVIDERS: ADMIT Hospitalist; ATTEND Internal Medicine
DX: R07.9 Chest pain, unspecified (principal); R51 Headache; I10 Essential (primary) hypertension; E78.5 Hyperlipidemia, unspecified; E53.8 Deficiency of other specified B group vitamins; M19.90 Unspecified osteoarthritis, unspecified site; Z79.82 Long term (current) use of aspirin; Z85.828 Personal history of other malignant neoplasm of skin
CPT/HCPCS: 36415; 70450; 71045; 71275; 74174; 78452; 80053; 84484; 85025; 85610; 93005; 93017; 96374; 96376; 99284; A9270-GY; A9502; G0378; J0280; J0360; J2785; Q9967

== ENCOUNTER 2019-05-08 10:24 | Emergency (ER) | payer BC ==
--- NOTE | 2019-05-08 11:05 | UC ---
Eye Complaint HPI - HPI Summary HPI Summary: 58 yo female presents with rash to face. She tells me that 3 days ago she noticed an itchy spot on her right nasal bridge/medial right eyebrow. Pulled out what she thought was an infected hair here. Since that time has developed swelling, redness, and yellow crusting to the area. She notes a hx of zoster to her right cheek many times in the past, but states this doesn't quite feel the same and has not noticed lesions elsewhere. She denies fever, chills, vision changes, sinus symptoms, sore throat. - History of Current Complaint Stated Complaint: EYE PROBLEM Time Seen by Provider: 05/08/19 11:05 Hx Obtained From: Patient Onset/Duration: Gradual Onset Severity Initially: Mild Severity Currently: Mild Pain Intensity: 5 Pain Scale Used: 0-10 Numeric - Allergies/Home Medications Allergies/Adverse Reactions: Allergies Allergy/AdvReac Type Severity Reaction Status Date / Time No Known Allergies Allergy Verified 05/08/19 11:21 Home Medications: Home Medications Rosuvastatin Calcium 1 tab PO DAILY 05/08/19 [History Confirmed 05/08/19] amLODIPine TAB* [Norvasc 5 mg TAB*] 5 mg PO DAILY 05/08/19 [History Confirmed ] PMH/Surg Hx/FS Hx/Imm Hx - Additional Past Medical History Additional PMH: B12 def Endocrine History: Dyslipidemia Cardiovascular History: Hypertension - Surgical History Surgical History: Yes Surgery Procedure, Year, and Place: hysterectromy. rhinoseptroplasty. Rt knee surgery - Family History Known Family History: Positive: Hypertension - Social History Lives: With Family Alcohol Use: Occasionally Substance Use Type: None Smoking Status (MU): Never Smoked Tobacco - Immunization History Most Recent Influenza Vaccination: 02/2013 Review of Systems All Other Systems Reviewed And Are Negative: No Constitutional: Positive: Negative Skin: Positive: Rash Eyes: Positive: Negative ENT: Positive: Negative Respiratory: Positive: Negative Cardiovascular: Positive: Negative Neurological: Positive: Negative Psychological: Positive: Negative Physical Exam - Summary Physical Exam Summary: GENERAL: NAD. WDWN. No pain distress. SKIN: Right nasal bridge/medial right eyebrow with 1.5cm area of mild erythema and edema with mild ttp. Scant yellow crusting without active drainage. No vesicles appreciated. No open wound or induration. NECK: Supple. 5mm lymph node right anterior cervical mild ttp. CHEST: No accessory muscle use. Breathing comfortably and in no distress. CV: Pulses intact. Cap refill <2seconds NEURO: Alert. PSYCH: Age appropriate behavior. Triage Information Reviewed: Yes Vital Signs: Vital Signs: Temp Pulse Resp BP Pulse Ox 97.5 F 72 18 150/110 99 05/08/19 11:16 05/08/19 11:16 05/08/19 11:16 05/08/19 11:16 05/08/19 11:16 Vital Signs Reviewed: Yes Eye Complaint Course/Dx - Course Course Of Treatment: Likely early abscess/cellulitis to face. Given her history of shingles to the face, I cannot exclude this today but does seem less likely. Discussed this with pt and she prefers to be treated for both at this time as it is around her eye. Will rx for keflex, bactroban ointment, and valacyclovir. Advised that if she develops more lesions, pain in her eye, or vision changes to see an eye doctor within 24hours - Differential Dx/Diagnosis Provider Diagnosis: Abscess of face Discharge ED - Sign-Out/Discharge Documenting (check all that apply): Patient Departure All imaging exams completed and their final reports reviewed: No Studies - Discharge Plan Condition: Stable Disposition: HOME Prescriptions: Cephalexin CAP* [Keflex CAP*] 500 mg PO TID #21 cap Mupirocin 2% OINT* [Bactroban 2 % Oint*] 1 applic TOPICAL BID #1 tube ValACYclovir (*) [Valtrex 500 mg (*)] 500 mg PO TID #21 tab Patient Education Materials: Shingles (ED), Abscess (ED) Referrals: Paige Marquis [Primary Care Provider] - Tao Quiles MD [Medical Doctor] - If Needed Additional Instructions: If you develop a fever, shortness of breath, chest pain, new or worsening symptoms - please call your PCP or go to the ED immediately. Your blood pressure was high at todays visit. Please see your primary provider within 4 weeks for recheck and re-evaluation. Your exam seems most consistent with cellulitis/early abscess at this time, but shingles is also a consideration. If you develop spreading lesions or vesicles - please follow up with an eye doctor within 24hrs. - Billing Disposition and Condition Condition: STABLE Disposition: Home
--- OUTSIDE RECORDS SUMMARY | 2019-05-08 11:06 | XMS REPORT | Summary of Care ---
:1960 Author Organization [facility] Address [address] [place] [address] Care Team Providers Name Role Phone Paige Dickerson NP Primary Care Provider Reason for Referral Diagnostic Radiology (Routine) Status Reason Specialty Diagnoses / Procedures Referred By Contact Referred To Contact Open Diagnoses Stenosis of celiac artery Amanda Ratliff MD Procedures US Doppler Mesenteric Arterial Comp (Vascular Lab Performed) [address] [facility] Room [address] [place] [address] Email: [email or web address] Reason for Visit Reason Comments Other Encounter Details Date Type Department Care Team Description 03/20/2019 Office Visit [facility] Vascular Amanda Ratliff MD Stenosis of celiac Surgery at [facility] [address] [facility] artery (Primary Dx) [place] Room [address] [place] [address] [phone] [id number] Allergies No Known Allergiesdocumented as of this encounter (statuses as of 03/20/2019) Medications Medication Sig Dispensed Refills Start Date End Date Status amLODIPine Besylate 5 0 12/04/2018 Active MG Oral Tablet (NORVASC) Losartan Potassium-HCTZ Take 1 tablet by 0 10/31/2018 Active 100-25 MG Oral Tablet mouth daily (HYZAAR) Rosuvastatin Calcium 10 0 03/13/2019 Active MG Oral Tablet (CRESTOR) Aspirin 81 MG Oral Take 81 mg by 0 Active Tablet Delayed Release mouth daily documented as of this encounter (statuses as of 03/20/2019) Active Problems No known active problemsdocumented as of this encounter (statuses as of 2018) Social History Tobacco Use Types Packs/Day Years Used Date Never Smoker 0 Smokeless Tobacco: Never Used Alcohol Use Drinks/Week oz/Week Comments Never Alcohol Habits Answer Date Recorded How often do you have a drink containing alcohol? Never 03/20/2019 How many drinks containing alcohol do you have on a typical Not asked day when you are drinking? How often do you have six or more drinks on one occasion? Not asked Sex Assigned at Date Recorded Not on file Job Start Date Occupation Industry Not on file Not on file Not on file Travel History Travel Start Travel End No recent travel history available. documented as of this encounter Last Filed Vital Signs Vital Sign Reading Time Taken Comments Blood Pressure 125/77 03/20/2019 11:21 AM EST Pulse 58 03/20/2019 11:19 AM EST Temperature - - Respiratory Rate - - Oxygen Saturation - - Inhaled Oxygen Concentration - - Weight 52.2 kg (115 lb) 03/20/2019 11:19 AM EST Height 147.3 cm (4' 10") 03/20/2019 11:19 AM EST Body Mass Index 24.04 03/20/2019 11:19 AM EST documented in this encounter Progress Notes Amanda Ratliff MD - 03/20/2019 10:30 AM EST Subjective: Patient ID: Rylie Freeman is a 58 y.o. female with HTN, Mixed hyperlipidemia and numbness feet and hands. Patient's mother had surgery for celiac artery stenosis and she had an US 2014 that showed this. She was followed y a Vascular Surgeon in her area. She is concerned that the numbness of hands and feet is vascular issue. She has pain in her chest most of the time. She had a stress test which was OK. She has had numbness of her hands and feet for a long time. She usually notices it at night. She feels like her arms are and she has no feeing. She doesn't sleep well. She is not sure if that is waking her up. She can walk as far as she wants. She gets pain in the back of her legs at night. She is on Crestor- leg cramps at night. Her activities are not limited. She doesn't notice the numbness during the day. 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 She has had an Echo. She doesn't have a great appetite. She has been threwing up lately- 1-2 times a week. She has bouts of diarrhea. She has lost 5 lbs. She wants to lose some more weight. ROS: decreased energy, visual difficulty, wears glasses, chest pain, swollen feet, HTN, coughing, snoring, rectal bleeding, heartburn, rashes, bumps,color change or growth of moles, FAIRCHILD during the niht,muscle aches, back pain, jiont pain/ swelling, vit B12 Deficiency, anemia, easy bruising Chief Complaint: HPI Rylie has a past medical history of Cancer, Coronary artery disease, Degenerative joint disease of low back, Hyperlipidemia, and Hypertension. Rylie does not have a problem list on file. Rylie has a past surgical history that includes Rhinoplasty; Knee arthroscopy ( Right); Hysterectomy; and Excision basal cell carcinoma. Her family history includes Dementia in her father; Diabetes in her mother; Heart disease in her mother; Kidney disease in her mother. Rylie reports that she has never smoked. She has never used smokeless tobacco. She reports that shedoes not drink alcohol or use drugs. Rylie has a current medication list which includes the following prescription(s) : amlodipine, aspirin, losartan-hydrochlorothiazide, and rosuvastatin. Current Outpatient Medications on File Prior to Visit Medication Sig Dispense Refill amLODIPine Besylate 5 MG Oral Tablet (NORVASC) 0 Aspirin 81 MG Oral Tablet Delayed Release Take 81 mg by mouth daily Losartan Potassium-HCTZ 100-25 MG Oral Tablet (HYZAAR) Take 1 tablet by mouth daily 0 Rosuvastatin Calcium 10 MG Oral Tablet (CRESTOR) 0 No current facility-administered medications on file prior to visit. Rylie has No Known Allergies. Review of Systems All other systems reviewed and are negative. Objective: Physical Exam Constitutional: She is oriented to person, place, and time. She appears well- developed and well-nourished. HENT: Head: Normocephalic and atraumatic. Eyes: Pupils are equal, round, and reactive to light. Conjunctivae are normal. Neck: Normal range of motion. Neck supple. No bruits Cardiovascular: Normal rate, normal heart sounds and intact distal pulses. Pulmonary/Chest: Effort normal and breath sounds normal. Abdominal: Soft. Musculoskeletal: Normal range of motion. General: No edema. Neurological: She is alert and oriented to person, place, and time. Skin: Skin is warm and dry. Psychiatric: She has a normal mood and affect. Her behavior is normal. Judgment and thought content normal. Nursing note and vitals reviewed. Lab Review: not applicable Assessment: 1. Stenosis of celiac artery Plan: Numbness of arms and feet - not vascular related. Celiac axis stenosis hx - some GI complaints but not clearly chronic mesenteric ischemic picture. Iwill schedule a mesenteric artery duplex US and see her back after. documented in this encounter Plan of Treatment Date Type Specialty Care Team Description 06/13/2019 Appointment Vascular Surgery 06/13/2019 Office Visit Vascular Surgery Amanda Ratliff MD [facility] [place] [address] [phone] Name Type Priority Associated Diagnoses Order Schedule US Doppler Mesenteric Imaging Routine Stenosis of celiac Expected: 2018, Arterial Comp (Vascular artery Expires: 07/19/2019 Lab Performed) Health Maintenance Due Date Last Done Comments Hepatitis C Screening (B. 1960 [id number]) MMR Vaccines (1 of 1 - Standard [birth year]04/1961 series) DTaP,Tdap,and Td Vaccines (1 - 1969 Tdap) HIV Screening 11/04/1975 Cervical Cancer Screening 5 years 11/04/1983 Breast Cancer Screening 2 years 2012 Colon Cancer Screening 10 yrs 2012 Influenza Vaccine 02/07/2019 Pneumococcal Vaccine: 65+ Years (1 11/04/2027 of 2 - PCV13) HIB Vaccines Aged Out No longer eligible based on patient's age to complete this topic Hepatitis A Vaccines Aged Out No longer eligible based on patient's age to complete this topic Hepatitis B Vaccines Aged Out No longer eligible based on patient's age to complete this topic IPV Vaccines Aged Out No longer eligible based on patient's age to complete this topic Pneumococcal Vaccine: Pediatrics Aged Out No longer eligible based on (0 to 5 Years) and At-Risk patient's age to complete this Patients (6 to 64 Years) topic Varicella Vaccines Aged Out No longer eligible based on patient's age to complete this topic documented as of this encounter Results Not on filedocumented in this encounter Visit Diagnoses Diagnosis Stenosis of celiac artery - Primary Celiac artery compression syndrome documented in this encounter
[2019-05-08 11:28] VITALS: BP 150/110
--- NOTE | 2019-05-09 11:09 | UC ---
- Progress Note Progress Note: Pt came to clinic today and stopped at front office administrator to say she saw the eye doctor today and they told her that her cornea and eye are healthy. Pt states the redness has slightly spread down the nasal bridge compared to yesterday and she is very concerned about MRSA - no hx of this. The rash itself has spread slightly and there is slightly more edema than her visit yesterday, but the crusting and erythema have improved. Given her concern for MRSA, i will switch her anbx to clindamycin. Advised to go to the ED if symptoms worsen or do not improve in 2-3 days. Will also rx for diflucan as she states she gets yeast infections easily with anbx. Course/Dx - Diagnoses Provider Diagnoses: Abscess of face Discharge ED - Sign-Out/Discharge Documenting (check all that apply): Post-Discharge Follow Up All imaging exams completed and their final reports reviewed: No Studies - Discharge Plan Condition: Stable Disposition: HOME Prescriptions: Cephalexin CAP* [Keflex CAP*] 500 mg PO TID #21 cap Clindamycin HCl 300 mg PO TID #21 capsule Fluconazole 150 MG TAB* [Diflucan 150 MG TAB*] 150 mg PO ONCE #2 tablet Mupirocin 2% OINT* [Bactroban 2 % Oint*] 1 applic TOPICAL BID #1 tube ValACYclovir (*) [Valtrex 500 mg (*)] 500 mg PO TID #21 tab Patient Education Materials: Shingles (ED), Abscess (ED) Referrals: Paige Marquis [Primary Care Provider] - Tao Quiles MD [Medical Doctor] - If Needed Additional Instructions: If you develop a fever, shortness of breath, chest pain, new or worsening symptoms - please call your PCP or go to the ED immediately. Your blood pressure was high at todays visit. Please see your primary provider within 4 weeks for recheck and re-evaluation. Your exam seems most consistent with cellulitis/early abscess at this time, but shingles is also a consideration. If you develop spreading lesions or vesicles - please follow up with an eye doctor within 24hrs. - Billing Disposition and Condition Condition: STABLE Disposition: Home
== END 2019-05-08 11:40 | disposition home or self-care (01) ==
LOC: UCEAST 10:24
DX: L02.01 Cutaneous abscess of face (principal); H57.89 Other specified disorders of eye and adnexa; E78.5 Hyperlipidemia, unspecified; I10 Essential (primary) hypertension; Z79.899 Other long term (current) drug therapy
CPT/HCPCS: 99212; G0463